=== PATIENT | female | born 1930 | race Caucasian/White ===

== ENCOUNTER → 2017-10-10 | Outpatient (CLI) | payer MEDICARE ==
[~2017-10-10] MED LIST: AMLO10TA2 PO; ATOR10 PO; Aspirin PO; DIAZ10TA4 PO; FENO160 PO; HYDR-2132 PO; METO-409 PO; TRIA1TAB3 PO; VIT1TABL84 PO
== END | disposition home or self-care (01) ==
LOC: RAH 14:18
PROVIDERS: ATTEND Physical Medicine & Rehabilitation
DX: M47.896 Other spondylosis, lumbar region (principal); M41.9 Scoliosis, unspecified; M85.80 Other specified disorders of bone density and structure, unspecified site; M47.9 Spondylosis, unspecified; I70.0 Atherosclerosis of aorta; M54.9 Dorsalgia, unspecified; M17.12 Unilateral primary osteoarthritis, left knee; M25.562 Pain in left knee; L03.119 Cellulitis of unspecified part of limb
CPT/HCPCS: 72148